=== PATIENT | male | born 1965 | race Two or more races ===

== ENCOUNTER 2017-01-02 20:41 | Emergency (ER) | payer OTHER ==
[2017-01-02 20:45] VITALS: PULSE 62; RESP 14; TEMP 97.7
[2017-01-02] MEDS ORDERED: SILVER NITRATE APPLICATOR 1 APPL TP ONE (21:00)
--- NOTE | 2017-01-02 21:00 | EDPHY ---
H & P Stated Complaint: sliced finger with kitchen mandoline Time Seen by Provider: 01/02/17 20:53 HPI/ROS: HPI: This is a 51-year-old male who presents with Chief Complaint: sliced finger with kitchen mandolin Location: Right thumb and middle finger Quality: Cut Duration: Prior to arrival Signs and Symptoms: + bleeding, no radiation, no numbness, no weakness, no tingling, no decreased range of motion, no swelling, + pain Timing: Acute Severity: [id number] Context: Patient is right-hand dominant, was making potato chips for dinner, when he used his new Mandolin that he purchased today and accidentally cut the finger tips of his right thumb and middle finger. Immediately started to bleed ; he applied direct pressure but was unable to stop the bleeding. He denies any pain/decreased range of motion/paresthesias. He denies any blood thinner use. He is generally healthy. He was hiking with his today. Modifying Factors: Comment: ROS: see HPI Constitutional: No fever, no chills, no weight loss Eyes: No blurred vision Respiratory: No shortness of breath, no cough Cardiovascular: No chest pain Gastrointestinal: No nausea, no vomiting no diarrhea Genitourinary: No dysuria Extremities: No myalgias Neurologic: No weakness, no numbness Skin: No rashes Hematologic: No bruising, no bleeding MEDICAL/SURGICAL/SOCIAL HISTORY: Medical history: Generally healthy. Does not take any regular medications. Surgical history: Tonsillectomy Social history: CONSTITUTIONAL: Pleasant adult male, at bedside, awake and alert, no obvious distress HEENT: Atraumatic and normocephalic. NECK: supple, no midline tenderness, flexion 45 degrees, extension 45 degrees, right and left lateral flexion 45 degrees. No meningismus. Cardiovascular: Normal S1/S2, regular rate, regular rhythm, without murmur rub or gallop. PULMONARY/CHEST: Symmetrical and nontender. no crepitus. Clear to auscultation bilaterally. Good air movement. No accessory muscle usage. ABDOMEN: Soft, nondistended, nontender, no ecchymosis. PELVIC: no pain with rocking; bilateral hips flexion 125 degrees, extension 30 degrees, with no pain internal rotation and no pain external rotation. BACK: No midline tenderness, no paraspinous spasm, deep tendon reflexes 2/2, no pain with straight leg raise EXTREMITIES: 2/2 radial pulses, superficial 1 cm skin avulsion of the finger tips of both the thumb and middle finger. DIP/PIP jount flexion and extension intact. no deformities, no clubbing, no cyanosis or edema. NEUROLOGICAL: no focal neuro deficits. GCS 15. Light touch sensation intact. SKIN: Warm and dry, no erythema. no rash. Good capillary refill. Source: Patient Exam Limitations: No limitations - Personal History Current Tetanus/Diphtheria Vaccine: Yes - Medical/Surgical History Hx Asthma: No Hx Chronic Respiratory Disease: No Hx Diabetes: No Hx Cardiac Disease: No Hx Renal Disease: No Hx Cirrhosis: No Hx Alcoholism: No Hx HIV/AIDS: No Hx Splenectomy or Spleen Trauma: No Other PMH: PMHx: denies. PSHx: tonsillectomy - Social History Smoking Status: Never smoked Constitutional: Initial Vital Signs Temperature (C) 36.5 C 01/02/17 20:42 Heart Rate 62 01/02/17 20:42 Respiratory Rate 14 01/02/17 20:42 Blood Pressure 126/82 H 01/02/17 20:42 O2 Sat (%) 96 01/02/17 20:42 O2 Delivery Mode Room Air Allergies/Adverse Reactions: No Known Allergies Allergy (Unverified 01/02/17 20:42) Home Medications: Medication Instructions Recorded NK [No Known Home Meds] 01/02/17 Medical Decision Making ED Course/Re-evaluation: No signs of neurovascular compromise/tenting of skin/compartment syndrome/ extremities and joints examined above and below area of concern and are neurovascularly intact. Tetanus up-to-date Bleeding was unable to be stopped by direct pressure; surgery foam placed and wrapped with Coban for 20-30 minutes. No skin to suture. No nail involvement. 2124: reassessed patient and thumb skin avulsion has stopped bleeding with surgery foam. Silver nitrate x 1 used to achieve good hemostasis of the middle finger skin avulsion. Clean sterile dressing placed Verbal and written wound care instructions provided. Differential Diagnosis: Differential diagnosis includes skin avulsion, laceration, nerve injury, tendon injury. - Data Points Medications Given: Discontinued Medications Silver Nitrate/Potassium Nitrate (Silver Nitrate Applicator) 2 each TP EDNOW ONE Stop: 01/02/17 21:01 Last Admin: 01/02/17 21:07 Dose: 2 each Departure - Departure Disposition: Home, Routine, Self-Care Clinical Impression: Avulsion of skin of finger without complication Qualifiers: Encounter type: initial encounter Qualified Code(s): S61.209A - Unspecified open wound of unspecified finger without damage to nail, initial encounter Instructions: Skin Avulsion (ED) Additional Instructions: Keep the dressing in place and dry for 48 hours. After 48 hours, you may remove the dressing; wash the site daily with mild soap and water; then pat dry. Apply topical antibiotic ointment and keep covered with clean sterile dressing until fully healed. Take ibuprofen 600 mg every 8 hours with food as needed for pain and inflammation. Monitor for signs and symptoms of infection. Referrals: Ajith Osman MD [Primary Care Provider] - As per Instructions
[2017-01-02 21:44] VITALS: BP 131/80; O2SAT 94
== END 2017-01-02 21:44 | disposition home or self-care (01) ==
DX: S61.001A Unspecified open wound of right thumb without damage to nail, initial encounter (principal); W27.4XXA Contact with kitchen utensil, initial encounter

== ENCOUNTER 2017-08-17 12:56 | Emergency (ER) | payer OTHER ==
[2017-08-17 13:05] VITALS: BP 121/78
--- NOTE | 2017-08-17 13:47 | EDPHY ---
H & P Time Seen by Provider: 08/17/17 13:45 HPI/ROS: CHIEF COMPLAINT: Right ear pain HISTORY OF PRESENT ILLNESS: 51-year-old male here with 1 day of right ear pain. He reports that he was swimming yesterday in the ocean and developed right ear pain. He has tried using Q-tips home without resolution of pain. Motrin did improve his pain. He has noticed no fever, neck pain, nausea, vomiting, ear discharge. He does not smoke, drink or do any drugs. REVIEW OF SYSTEMS: Constitutional: No fever, no chills. Eyes: No discharge. ENT: No sore throat. Respiratory: No cough, no shortness of breath. Skin: No rashes. Neurological: No headache. Smoking Status: Never smoked Physical Exam: General Appearance: Alert and no distress. Eyes: Pupils equal and round no injection. Bilateral cerumen impaction without discharge or erythema to the external auditory meatus. Unable to visualize tympanic membranes bilaterally Respiratory: No increased work of breathing lungs are clear to auscultation. Cardiac: regular rate and rhythm. Musculoskeletal: Moving all 4 extremities, ambulating without difficulty Extremities have full range of motion and are nontender. Skin: No rashes or lesions. Constitutional: Initial Vital Signs Temperature (C) 36.7 C 08/17/17 13:03 Heart Rate 58 L 08/17/17 13:03 Respiratory Rate 18 08/17/17 13:03 Blood Pressure 121/78 H 08/17/17 13:03 O2 Sat (%) 98 08/17/17 13:03 O2 Delivery Mode Room Air Allergies/Adverse Reactions: No Known Allergies Allergy (Verified 08/17/17 13:02) Home Medications: Medication Instructions Recorded NK [No Known Home Meds] 01/02/17 Medical Decision Making Procedures: Attempted cerumen disimpaction with curette but and able to move the cerumen as the cerumen was too hard. ED Course/Re-evaluation: Patient here with right ear pain the last 24 hr found to have cerumen impaction is most likely the source of his pain. Attempted cerumen disimpaction was unsuccessful in the ER. He agrees to try Debrox at home Keflex 5 days. I saw this patient in conjunction with my supervising physician Dr. Fenton. Differential Diagnosis: Otitis media, otitis externa, ear foreign object Departure - Departure Disposition: Home, Routine, Self-Care Condition: Good Instructions: Cerumen Impaction (ED) Additional Instructions: Purchase Debrox at a drug store and use as directed for the next 5 days. If your symptoms do not improve follow-up with primary care physician or urgent care. Referrals: Ajith Osman MD [Primary Care Provider] - As per Instructions
== END 2017-08-17 14:01 | disposition home or self-care (01) ==
PROC: F09Z3XZ Cerumen Management Treatment using Cerumen Management Equipment (ICD-10-PCS; principal; 2017-08-17)
DX: H61.21 Impacted cerumen, right ear (principal)